=== PATIENT | female | born 1990 | race Caucasian/White ===

== ENCOUNTER → 2023-04-07 | Day surgery (SDC) | payer OTHER ==
[2023-04-04 13:28] VITALS: BP 110/57
[~2023-04-07] VITALS: Ht 160 cm; Wt 92.1 kg
[~2023-04-07] MED LIST: ACETAMINOPHEN 100 ML IV ONE; CALCIUM500 M1 PO; Dexamethasone Sodium Phospha 20 MG/5 ML VIAL IV ONE; GLYCOPYRROLATE IN WATER/PF 0.4 MG/2 ML SYRINGE IV ONE; IRON18 MG PO; Lactated Ringer's Solution 1,000 ML IV ONE; Lactated Ringer's Solution 1,000 ML IV SCH; Lidocaine Hydrochloride 2% 10 ML AMP IM ONE; MULTIVITAMINS1 EAC6 PO; Midazolam Hydrochloride 2 MG/2 ML VIAL IV ONE; Midazolam Hydrochloride 2 MG/2 ML VIAL ONE; Neostigmine Methylsulfate 3 MG/3 ML SYRINGE IV ONE; OMEPRAZOLE MAGN20 MG PO; Ondansetron Hydrochloride 4 MG/2 ML VIAL IV ONE; PROPOFOL 200 MG/20 ML VIAL IV ONE; ROCURONIUM BROMIDE 50 MG/5 ML SYRINGE IV ONE; SEVOFLURANE 250 ML BOT INH ONE; TOPIRAMATE25 M1 PO; VITAMIN D-40010 MCG PO; VITAMIN D350 MCG PO; fentaNYL CITRATE/PF 50 MCG/ML SYRINGE IV ONE; fentaNYL CITRATE/PF 50 MCG/ML SYRINGE ONE
[2023-04-07 09:30] VITALS: BP 117/56
[2023-04-07 13:19] VITALS: BP 110/47
[2023-04-07 13:34] VITALS: BP 102/62
[2023-04-07 13:49] VITALS: BP 102/62
[2023-04-07 14:04] VITALS: BP 111/61
[2023-04-07 14:19] VITALS: BP 108/52
== END | disposition home or self-care (01) ==
LOC: SDC 04-04 13:15
PROVIDERS: ATTEND Obstetrics & Gynecology
DX: Z30.2 Encounter for sterilization (principal); Z30.433 Encounter for removal and reinsertion of intrauterine contraceptive device; Z98.891 History of uterine scar from previous surgery; Z98.84 Bariatric surgery status; Z90.49 Acquired absence of other specified parts of digestive tract; Z79.899 Other long term (current) drug therapy